=== PATIENT | male | born 1985 | race Caucasian/White ===

== ENCOUNTER 2019-09-20 12:58 | Outpatient (CLI) | payer OTHER ==
--- NOTE | 2019-09-21 | XRAY Report ---
Reason: left shoulder pain Procedure Date: 09/20/2019 Accession Number: [id number] / [id number] Procedure: XR - Shoulder 3 View LT CPT Code: Final Report FULL RESULT: EXAM: LEFT SHOULDER RADIOGRAPHY EXAM DATE: 09/20/2019 01:21 PM. CLINICAL HISTORY: Left shoulder pain. COMPARISON: None. TECHNIQUE: 3 views. FINDINGS: Bones: No acute fracture or suspicious bone lesion. Joints: The glenohumeral and acromioclavicular joints are unremarkable. Soft tissues: The partially imaged lung is unremarkable. IMPRESSION: Unremarkable shoulder radiography. RADIA
== END 2019-09-20 12:59 | disposition home or self-care (01) ==
LOC: DI 12:58
PROVIDERS: ATTEND Physician Assistant
DX: M25.512 Pain in left shoulder (principal)

== ENCOUNTER 2021-05-31 14:55 | Outpatient (CLI) | payer OTHER ==
[2021-05-31 15:32] LABS: ALBUMIN 4.7 g/dL (3.2-5.5); ALBUMIN/GLOBULIN RATIO 1.4 (1.0-2.2); ALKALINE PHOSPHATASE 54 IU/L (42-121); ALT ALANINE AMINOTRANSFERASE 78 IU/L (10-60); AST ASPARTATE AMINOTRANSFERASE 35 IU/L (10-42); BILIRUBIN,TOTAL 1.2 mg/dL (0.2-1.0); BUN - BLOOD UREA NITROGEN 15 mg/dL (6-20); CALCIUM 9.2 mg/dL (8.5-10.3); CARBON DIOXIDE - CO2 25 mmol/L (21-32); CHLORIDE 105 mmol/L (101-111); CHOL/HDL RATIO 5.4 (<5.0); CHOLESTEROL 226 mg/dL; CREATININE 0.8 mg/dL (0.6-1.2); GFR - MDRD 109 (>89); GLUCOSE 101 mg/dL (70-100); HDL CHOLESTEROL 42 mg/dL; LDL CHOLESTEROL,CALCULATED 124 mg/dL; POTASSIUM 3.8 mmol/L (3.5-5.0); SODIUM 138 mmol/L (135-145); TRIGLYCERIDES 301 mg/dL; VLDL CHOLESTEROL 60 mg/dL
[2021-06-01 14:06] LABS: HIV AG/AB 4TH GEN NON-REACTIVE (NON-REACTIVE)
[2021-06-03 17:01] LABS: HCV RNA QNT <1.18 NOT DETECTED LogIU/mL; HCV RNA QUANT RT PCR <15 NOT DETECTED IU/mL
== END 2021-05-31 14:56 | disposition home or self-care (01) ==
LOC: LAB 14:55
PROVIDERS: ATTEND Nurse Practitioner Family
DX: Z01.84 Encounter for antibody response examination (principal); R74.01 Elevation of levels of liver transaminase levels; E78.5 Hyperlipidemia, unspecified; Z11.59 Encounter for screening for other viral diseases; Z11.4 Encounter for screening for human immunodeficiency virus [HIV]
CPT/HCPCS: 36415; 80053; 80061; 83721; 86735; 86762; 86765; 86787; 87389; 87522

== ENCOUNTER 2021-05-31 15:13 | Outpatient (CLI) | payer OTHER ==
--- NOTE | 2021-05-31 15:40 | XRAY Report ---
PROCEDURE: Wrist 3 View RT INDICATIONS: PAIN IN RT WRIST TECHNIQUE: 3 views of the wrist were acquired. COMPARISON: None. FINDINGS: BONES: No acute, displaced fracture or dislocation. The carpal bones are normally aligned. SOFT TISSUES: No focal abnormality. IMPRESSION: 1.No acute osseous abnormality. Reviewed by: Dieter Wesley MD on 05/31/2021 3:38 PM PDT Approved by: Dieter Wesley MD on 05/31/2021 3:38 PM PDT Station ID: [id number]
== END 2021-05-31 15:14 | disposition home or self-care (01) ==
LOC: DI 15:13
PROVIDERS: ATTEND Nurse Practitioner Family
DX: Z01.84 Encounter for antibody response examination (principal); M25.531 Pain in right wrist; E78.5 Hyperlipidemia, unspecified; R74.01 Elevation of levels of liver transaminase levels; Z11.59 Encounter for screening for other viral diseases; Z11.4 Encounter for screening for human immunodeficiency virus [HIV]
CPT/HCPCS: 36415; 80053; 80061; 83721; 86735; 86762; 86765; 86787; 87389; 87522

== ENCOUNTER 2021-08-14 08:17 | Outpatient (CLI) | payer OTHER ==
[2021-08-14 08:56] LABS: BASOPHILS # (AUTO) 0.1 10^3/uL (0.0-0.1); BASOPHILS % (AUTO) 0.9 %; EOSINOPHILS # (AUTO) 0.1 10^3/uL (0.0-0.7); EOSINOPHILS % (AUTO) 1.7 %; HCT - HEMATOCRIT 47.2 % (42.0-52.0); HGB - HEMOGLOBIN 16.1 g/dL (14.0-18.0); LYMPHOCYTES # (AUTO) 1.9 10^3/uL (1.5-3.5); LYMPHOCYTES % (AUTO) 27.2 %; MEAN CORPUSCULAR HEMOGLOBIN 29.5 pg (27.0-31.0); MEAN CORPUSCULAR HGB CONC 34.1 g/dL (32.0-36.0); MEAN CORPUSCULAR VOLUME 86.4 fL (80.0-94.0); MEAN PLATELET VOLUME 9.2 fL (7.4-11.4); MONOCYTES # (AUTO) 0.6 10^3/uL (0.0-1.0); MONOCYTES % (AUTO) 8.5 %; NEUTROPHILS # (AUTO) 4.3 10^3/uL (1.5-6.6); NEUTROPHILS % (AUTO) 61.4 %; PLT - PLATELET COUNT 368 10^3/uL (130-450); RED BLOOD COUNT 5.46 10^6/uL (4.70-6.10); RED CELL DISTRIBUTION WIDTH 12.8 % (12.0-15.0); WHITE BLOOD COUNT 7.1 x10^3/uL (4.8-10.8)
[2021-08-14 09:06] LABS: BILIRUBIN,DIRECT 0.3 mg/dL (0.1-0.5); BILIRUBIN,INDIRECT 0.4 mg/dL; BILIRUBIN,TOTAL 0.7 mg/dL (0.2-1.0)
--- NOTE | 2021-08-14 09:56 | Ultrasound Report ---
PROCEDURE: Abdomen Limited INDICATIONS: ELEVATED LIVER ENZYMES TECHNIQUE: Real-time focused scanning was performed of the abdomen, with image documentation. COMPARISON: None FINDINGS: The liver demonstrates normal size. The liver demonstrates moderately increased echogeni city, which limits ultrasound sensitivity for detection of masses. Focal fatty sparing can be seen ad jacent to the gallbladder. No gallstones or sludge can be seen. The gallbladder wall does not appear thickened. Several gallblad humberto wall polyps are seen, which measure up to 4 mm There is no specific pericholecystic fluid. The so nographic Escobar's sign is negative. No biliary ductal dilatation is seen. The common bile duct measures 2 mm. The visualized pancreas is within normal limits. IMPRESSION: Increased liver echogenicity is seen. This is nonspecific, yet it is most commonly attributed to fatt y infiltration. Gallbladder wall polyps, without additional gallbladder abnormality seen. No biliary dilatation. Reviewed by: Arcenio Flores MD on 08/14/2021 8:[address] [facility] Approved by: Arcenio Flores MD on 08/14/2021 8:[address] [facility] Station ID: [id number]
== END 2021-08-14 08:18 | disposition home or self-care (01) ==
LOC: DI 08:17
PROVIDERS: ATTEND Nurse Practitioner Family
DX: R93.2 Abnormal findings on diagnostic imaging of liver and biliary tract (principal); K82.4 Cholesterolosis of gallbladder; R74.01 Elevation of levels of liver transaminase levels; R17 Unspecified jaundice
CPT/HCPCS: 36415; 82247; 82248; 82977; 85025

== ENCOUNTER 2023-09-11 15:28 | Outpatient (CLI) | payer OTHER ==
--- NOTE | 2023-09-11 16:30 | Sleep Patient Instructions ---
Sleep Center Visit Summary - Patient Visit Information Reason for Visit: Initial consult for evaluation of sleep disordered breathing and other sleep issues. - Patient Instructions Instructions Attached: Sleep Study, Sleep Study Home Monitor Additional Instructions: You will be completing a sleep study, either an in-lab polysomnography (PSG) or home sleep study (HST). You will follow-up in the sleep care office after the sleep study is completed to hear the results and talk about therapy, if needed. You will be called by our office staff to schedule this appointment, but you may contact us with any questions. - Clinic Information Contact: [facility] [address] [place] [id number] [email or web address] T: [phone]
--- NOTE | 2023-09-11 16:38 | SLEEP CARE CONSULTATION ---
Information from patient questionnaire entered by Regla Lazaro. I have reviewed and concur with the information entered by Regla Lazaro. This document represents the service I personally performed and the decisions made by me, Verna Marcial ARNP. History of Present Illness Service Date and Time: 09/11/2023 1528 Reason for Visit: New patient Chief Complaint: reports: Snoring, Excessive daytime sleepiness, Observed pauses in breathing Date of Onset: 2YRS Usual bedtime: 1100-8803 Time it takes to fall asleep: 15-30MINS Snores at night: Yes Observed to quit breathing while asleep: Yes Sleeps alone due to snoring: Yes Number of times waking at night: 1-3 Reasons for waking at night: reports: Bathroom. denies: Choking, Snoring, Gasping for air Toss, Turn, or Twitch while sleeping: Yes Recalls having dreams: Yes Usually gets out of bed at: 0540 Feels refreshed in the morning: Yes ("relatively") Morning headache: No Sleepy or fatigued during the day: Yes Ever fallen asleep while driving: Yes (drowsy driving, no accidents) Takes day naps: Yes (1 time a week, weekends occasionally) Dreams during day naps: Yes Prior sleep studies: No Additional HPI information: I had the pleasure of seeing CAROL VAZQUEZ today regarding the possibility of him having a sleep disorder. His current complaints are snoring, excessive daytime sleepiness and observed pauses in breathing. He is concerned that he may have sleep apnea. His has narcolepsy and has noted that he will stops breathing. He snores loudly, can be heard in other room by visitors. He has had times when he wakes up with his throat feeling swollen. He states most the time he does feel somewhat rested when he gets up in the morning he denies any headaches. He has noticed more times in last 2 years where he gets tired and sleepy during down times. He has had a few incidences where he gets more drowsy when driving but has not had any accidents. His says more often she has seen him moving his hands/arms while sleeping/dreaming. He does sometimes talk in his sleep. He says both of his parents have diagnosed sleep apnea but they are not currently using their CPAP's. - Parasomnia Symptoms Ever been unable to move upon waking from sleep: No Walks in sleep: No Talks in sleep: Yes Ever acted out dreams in sleep: Yes (having half-awake dreams and is moving in sleep) Ever felt weak in the knees when startled or emotional: No Bothered by creepy, crawly, restless sensations in legs: No Problems with memory or concentration: No Subjective Initial [place] Sleepiness Scale score: 11 (09/11/23) Past Medical History Past Medical History: reports: Hypertension, Attention deficit (not official diagnosis) Social History The patient's occupation is a TEACHER. Patient is and lives in [place]. Have you smoked in the past 12 months: No Alcohol use: Yes Alcohol amount and frequency: 0-3 DAILY Caffeine use: Yes Caffeine amount and frequency: 3-8 CUPS COFFEE WORK DAYS Family History Family history of sleep disordered breathing: Yes Family Hx Sleep Apnea: Mother: Snoring, Sleep apnea - Treated, Father: Snoring, Sleep apnea - Treated Allergies and Home Medications Known drug allergies: Yes (BUPROPION) Drug allergies reviewed: Yes Home medication list reviewed: Yes (as listed) Allergy and home medication list: Allergies No Known Drug Allergies Allergy (Verified 09/07/23 11:36) Home Medications Medication Instructions Recorded Confirmed Last Taken Type amLODIPine [Norvasc] 5 mg PO DAILY #30 tablet 03/09/22 09/11/23 Unknown Rx Losartan [Cozaar] See Rx Instructions .ROUTE .COMPLEX 09/11/23 09/11/23 Unknown History Multivitamin See Rx Instructions .ROUTE .COMPLEX 09/11/23 09/11/23 Unknown History Review of Systems Weight gain over past 5 years: 40 Cardiovascular: reports: high blood pressure Respiratory: denies: shortness of breath Gastrointestinal: denies: heartburn Neurological: denies: headaches Psychiatric: reports: Attention Deficit Hyperactivity Ear/Nose/Throat: reports: other (DEVIATED SEPTUM). denies: tonsillectomy Endocrine: denies: thyroid disease Physical Exam Vital signs obtained and entered by: REGLA Mello MA Blood Pressure: 143/102 (LEFT ARM) Cuff size: regular Heart Rate: 79 O2 Saturation: 99 Height: 6 ft Weight: 285 lb Body Mass Index: 38.6 BMI Classification: Obese Neck circumference: 18.25 Mouth and throat: narrow oropharynx Soft palate: long Hard palate: normal Uvula: normal Uvula visualization: 25% Mallampati Class III Tongue: enlarged in size with teeth [place] on lateral edges Tonsils: 2+ Neck: normal w/o lymphadenopathy or thyromegaly Heart: regular rate and rhythm Lungs: clear bilaterally Impression and Plan 1. Suspected Obstructive Sleep Apnea-Hypopnea Syndrome, as suggested by a history of loud and irregular snoring, observed cessation of breath while asleep, and excessive daytime sleepiness. Narrow oropharynx and obesity are common predisposing factors for obstructive sleep apnea-hypopnea syndrome. I recommend proceeding to polysomnography to confirm the diagnosis and to assess severity. If the patient has significant sleep disordered breathing, a manual CPAP titration study will also be performed to find the optimal treatment pressure. I informed the patient of what the sleep studies involve and after some discussion, obtained agreement to proceed. The pathophysiology of obstructive sleep apnea-hypopnea syndrome was discussed with the patient and health risks of cardiovascular and cerebrovascular disease if not treated. Risks of drowsy driving discussed in detail and patient advised to avoid long distance driving and to supervisor pullet farm at the first sign of drowsiness. Patient agreed to plan. * Schedule polysomnography +- manual CPAP titration study and return in 1-2 weeks after the study to discuss result and initiate therapy. * Avoid long distance driving or driving when feeling sleepy. * Avoid alcohol, sedative and muscle relaxant around bedtime. * Attempt to lose weight. * Review instructions provided by trained office staff on how to prepare for the sleep study. * Return for follow-up after sleep study completed. Counseling Topics: Weight loss health impact Follow up with Sleep Care in: other Plan: PSG/HST Visit Type: In Office Time Spent with Patient (minutes): 30 Provider Statement: I spent 100% of the Face to Face Visit with the patient with greater than 50% spent counseling the patient and coordination of care.
[2023-09-11 16:39] VITALS: BP 143/102; O2SAT 99
== END 2023-09-11 15:29 | disposition home or self-care (01) ==
LOC: SC 15:28
PROVIDERS: ATTEND Nurse Practitioner Family
DX: G47.10 Hypersomnia, unspecified (principal); R06.83 Snoring; R06.81 Apnea, not elsewhere classified; E66.9 Obesity, unspecified; Z68.38 Body mass index [BMI] 38.0-38.9, adult
CPT/HCPCS: 99203; 99212

== ENCOUNTER 2023-10-12 08:24 | Outpatient (CLI) | payer OTHER | END 2023-10-12 08:25 | disposition home or self-care (01) | LOC: SC 08:24 | PROVIDERS: ATTEND Nurse Practitioner Family | DX: G47.33 Obstructive sleep apnea (adult) (pediatric) (principal); R09.02 Hypoxemia; E66.9 Obesity, unspecified; Z68.38 Body mass index [BMI] 38.0-38.9, adult | CPT/HCPCS: 95806 ==

== ENCOUNTER 2023-11-01 08:50 | Outpatient (CLI) | payer OTHER ==
--- NOTE | 2023-11-01 09:15 | Sleep Patient Instructions ---
Sleep Center Visit Summary - Patient Visit Information Reason for Visit: Sleep study follow-up - Patient Instructions Additional Instructions: You will be completing a titration sleep study in our sleep lab where you will be sleeping with the CPAP machine on and we will be adjusting your pressures to find your optimal pressure settings. Once we have your results back, we will call you and schedule a follow up to go over the results, you may contact us with any questions or issues as needed. - Clinic Information Contact: [facility] [address] [place] [id number] [email or web address] T: [phone]
--- NOTE | 2023-11-01 09:18 | SLEEP CARE CONSULTATION ---
Information from patient questionnaire entered by Megan Lazaro. I have reviewed and concur with the information entered by Megan Lazaro. This document represents the service I personally performed and the decisions made by , Verna Marcial ARNP. History of Present Illness Service Date and Time: 11/01/2023 0850 Initial [place] Sleepiness Scale score: 11 (09/11/23) Current [place] Sleepiness Scale score: 15 (11/01/23) Additional HPI information: CAROL VAZQUEZ returns for follow up and results of the recently performed home sleep study. The sleep study showed extremely severe obstructive sleep apnea with an average AHI of 101.4 and adithya oxygen saturation of 58%. I explained the pathophysiology behind obstructive sleep apnea. We then spent quite a bit of time discussing different treatment options. For mild obstructive sleep apnea, surgery and oral appliance are alternatives to nasal CPAP therapy but in moderate or severe cases, nasal CPAP is the most effective and reliable treatment. I reviewed the impact of weight changes on sleep apnea and strongly recommended losing weight. After some discussion, the patient opted to go with the nasal CPAP therapy. A manual titration study will be ordered to find optimal pressure with office adjustments. I explained how CPAP machine works and what to expect when using the machine. Patient counseled not drink alcohol less than 4 hours before bedtime as it can increase snoring and apnea. Patient was cautioned about risks of drowsy driving until sleepiness symptoms resolve. Sleep Study - Results Type of Sleep Study: Home sleep study (COMPLETED 10/12/23) Prior sleep studies: No Polysomnography/Home Sleep Study results: Physician Impression: The quality of the study is good. The length of the study is adequate (> 240 minutes). Please also see the tabulated and graphic data. 1. Obstructive Sleep Apnea-Hypopnea (ICD-10 G47.33), extremely severe, with an AHI of 101.4/hr and adithya SaO2 of 58%. During the study, the patient had 741 apneas (741 obstructive, 0 central, 0 mixed) and 1 hypopnea. The longest episode lasted 79.5 seconds. The respiratory events occurred independently of body position (supine AHI was 102.4 and non-supine, 100.20). 2. Hypoxemia (ICD-10 R09.02), severe, with the lowest oxygen saturation of 58 % and 221.0 minutes with SaO2 under 90%. Average oxygen saturation was low (Average oxygen saturation was 88%). Allergies and Home Medications Known drug allergies: No Drug allergies reviewed: Yes Home medication list reviewed: Yes (no changes) Allergy and home medication list: Allergies No Known Drug Allergies Allergy (Verified 10/30/23 08:45) Review of Systems Review of systems same as previous: Yes (NO CHANGE) Physical Exam Vital signs obtained and entered by: MEGAN Mello MA Blood Pressure: 174/108 (LEFT ARM) Cuff size: long Heart Rate: 91 O2 Saturation: 96 Height: 6 ft Weight: 290 lb 3.2 oz Body Mass Index: 39.3 BMI Classification: Obese Impression and Plan 1. Obstructive Sleep Apnea-Hypopnea Syndrome, extremely severe, with lowest oxygen saturation of 58%. Obviously this is the cause of the patients symptoms of unrefreshed sleep, and excessive daytime sleepiness. Positive pressure therapy could benefit hypertension. As mentioned above, the patient will be started on nasal autoCPAP therapy. A manual titration study will be completed to find optimal treatment pressure. Compliance guidelines also reviewed. He was advised to sleep with his head elevated to try to reduce apneas until able to use CPAP. 2. Hypoxemia, severe, with a adithya oxygen saturation of 58% and 221 minutes spent under 90%. The baseline oxygen saturation was low normal with an average oxygen saturation of 88%. 3. Obesity, unspecified. Currently patients BMI is 39.3. Obesity increases the risk of apnea, CPAP pressure requirements and overall health risks especially cardiovascular and diabetes. Thus patient is advised to try to lose weight. 4. Elevated blood pressure reading in patient with hypertension. His blood pressure was 174/108 in the office today. He said he went for a walk before his appointment. He says he also tends to have "white coat" too. He says he will check it again when he gets home. He was advised to check in with his primary provider for further assistance and treatment as needed. He denies chest pain, shortness of breath, headaches or dizziness today. He voiced understanding. * Titration study. * Attempt to lose weight. * Avoid alcohol consumption near bedtime. * The patient is again cautioned about driving until sleepiness completely resolves. * Return after titration study to be set up on PAP therapy. Counseling Topics: Weight loss health impact Follow up with Sleep Care in: other (after titration study) Visit Type: In Office Time Spent with Patient (minutes): 20 Provider Statement: I spent 100% of the Face to Face Visit with the patient with greater than 50% spent counseling the patient and coordination of care.
[2023-11-01 09:26] VITALS: BP 174/108; O2SAT 96
== END 2023-11-01 08:51 | disposition home or self-care (01) ==
LOC: SC 08:50
PROVIDERS: ATTEND Nurse Practitioner Family
DX: G47.33 Obstructive sleep apnea (adult) (pediatric) (principal); R09.02 Hypoxemia; E66.9 Obesity, unspecified; Z68.38 Body mass index [BMI] 38.0-38.9, adult
CPT/HCPCS: 99212; 99213

== ENCOUNTER 2024-02-26 14:34 | Outpatient (CLI) | payer OTHER ==
--- NOTE | 2024-02-26 15:21 | Sleep Patient Instructions ---
Sleep Center Visit Summary - Patient Visit Information Reason for Visit: First compliance follow-up - Patient Instructions Additional Instructions: You were here for follow up of CPAP therapy. You will be continued on CPAP therapy with pressure at 14-16 cmH2O. Please let us know if the pressure change is uncomfortable and we can make further adjustments of the pressure. You should follow up with sleep care in 1-2 months. You may contact us sooner for any questions or concerns. - Clinic Information Contact: [facility] [address] [place] [address] [email or web address] T: [phone]
--- NOTE | 2024-02-26 15:26 | SLEEP CARE CONSULTATION ---
Information from patient questionnaire entered by Regla Lazaro. I have reviewed and concur with the information entered by Regla Lazaro. This document represents the service I personally performed and the decisions made by me, Verna Marcial ARNP. History of Present Illness Service Date and Time: 02/26/2024 1434 Previous diagnosis: Extremely Severe, Obstructive Sleep Apnea-Hypopnea Syndrome AHI: 101.4 (10/12/2023) Reason for follow up: first compliance Equipment type: CPAP (RESMED Airsense 10; S/U 11/20/23) Equipment obtained from: Other ([facility]; getting supplies) Mask style: Nasal pillows Mask brand: Resmed (AirFit [id number]) Backup mask available: No (will keep old mask when replaced) Last cushion change: 2 weeks Prior sleep studies: No Type of Sleep Study: Home sleep study (COMPLETED 10/12/23) HPI additional information: CAROL VAZQUEZ was diagnosed to have extremely severe, AHI 101.4, obstructive sleep apnea-hypopnea syndrome and returned today for CPAP therapy first compliance follow-up. Sleep Study - Results Type of Sleep Study: Home sleep study (COMPLETED 10/12/23) Prior sleep studies: No CPAP Compliance Data - Data Reviewed with Patient Average duration of nightly device use: 7 HRS 46 MINS Compliance rate %: 70 (11/20/23-12/19/23; 97% in last 30 days) Current pressure setting (cmH2O): 7-20 (median 10.9, avg 14.3, max 16) Average residual AHI: 7.0 Central apnea: 1.4 Obstructive apnea: 3.9 Hypopnea: 0.8 Average large leak: 2.2 L/min Compliance data discussion: His last 30 days shows 97% compliance with pressure set at 6-20 cmH2O. His residual AHI is at 3 using average pressure of 14.3 cmH2O and maximum at 16 cmH 2O. Subjective Patient concerns: denies: aerophagia, mask discomfort, air blowing in eyes, mask leak noise, condensation in mask/hose, nasal congestion, dry mouth, nose, throat, epistaxis Observed to snore while using device: No Current pressure setting perceived as: comfortable On therapy, patient: reports: sleeping better, awakening more refreshed, being more awake and alert during the day, more rested overall. denies: drowsiness while driving Initial [place] Sleepiness Scale score: 11 (09/11/23) Current [place] Sleepiness Scale score: 0 (02/26/24) Allergies and Home Medications Known drug allergies: No Drug allergies reviewed: Yes Home medication list reviewed: Yes (no changes) Allergy and home medication list: Allergies No Known Drug Allergies Allergy (Verified 02/26/24 14:38) Physical Exam Vital signs obtained and entered by: REGLA Mello MA Blood Pressure: 169/109 (LEFT ARM) Cuff size: long Heart Rate: 97 O2 Saturation: 98 Height: 6 ft Weight: 309 lb 12.8 oz Body Mass Index: 42.0 BMI Classification: Morbidly Obese Impression and Plan 1. Obstructive Sleep Apnea-Hypopnea Syndrome, extremely severe, with good treatment compliance and fair apnea control with elevated residual AHI. On CPAP therapy, the patient has better sleep quality and is more rested overall. He has significant improvement of sleep apnea and is satisfied with current CPAP therapy. The patients pressure will be changed to autoCPAP 14-16 cmH20 to reflect pressure being used. Patient advised to contact me if pressure change is uncomfortable so that it can be adjusted. Goals for apnea control discussed. Patient's apnea severity and rationale for treatment to reduce apnea, improve sleep quality and reduce cardiovascular and cerebrovascular events was reviewed. I also reviewed the benefit of consistent device use of CPAP for hypertension. 2. Obesity, unspecified. Currently patients BMI is 42. Obesity increases the risk of apnea, CPAP pressure requirements and overall health risks especially cardiovascular and diabetes. Thus patient is advised to lose weight. 3. Elevated blood pressure reading in patient with hypertension. His initial blood pressure was 169/109. He says he always gets white coat hypertension but he ran out of one of his medications two days ago. He is getting it filled. He has a follow up with his PCP in about a week and will be addressing his blood pressure too. * Change auto CPAP pressure to 14-16 cmH2O * Notify me if snoring with mask or feeling that the pressure is too much or too little * Attempt to lose weight * Call this office if any problems using CPAP * Return for follow up in 1-2 months, or sooner if concerns arise Counseling Topics: Spare mask, Weight loss health impact Follow up with Sleep Care in: 1-2 months Visit Type: In Office Time Spent with Patient (minutes): 26 Provider Statement: I spent 100% of the Face to Face Visit with the patient with greater than 50% spent counseling the patient and coordination of care.
[2024-02-26 15:27] VITALS: BP 169/109; O2SAT 98
== END 2024-02-26 14:35 | disposition home or self-care (01) ==
LOC: SC 14:34
PROVIDERS: ATTEND Nurse Practitioner Family
DX: G47.33 Obstructive sleep apnea (adult) (pediatric) (principal); E66.01 Morbid (severe) obesity due to excess calories; Z68.41 Body mass index [BMI] 40.0-44.9, adult; I10 Essential (primary) hypertension
CPT/HCPCS: 99212; 99213